=== PATIENT | male | born 1995 | race Caucasian/White ===

== ENCOUNTER 2021-05-30 22:02 | Emergency (ER) | payer OTHER, BC, SELFPAY ==
[2021-05-30 22:04] VITALS: BP 173/103; PULSE 82; RESP 18; TEMP 36.3; O2SAT 96; BMI 34.4
[2021-05-31 00:03] VITALS: RESP 16
--- NOTE | 2021-05-31 00:07 | EX.ED.UPPERE ---
HPI History of Present Illness Chief Complaint: Laceration Informant: patient Narrative Narrative: Patient received a laceration across the dorsal distal surface of his left nondominant hand and thumb. He does not know if it opens up. No other injury. 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 No active bleeding. Nothing makes his symptoms better or worse. PFSH PFSH Allergy/AdvReac Type Severity Reaction Status Date / Time No Known Allergies Allergy Verified 05/30/21 22:05 Social History Smoking Status: Former smoker ROS ROS ED Gastrointestinal Gastrointestinal: Denies nausea or vomiting Musculoskeletal Musculoskeletal: Reports other Details: Thumb injury as in history of present illness. Integumentary Reports other Details: Laceration to left distal dorsal thumb. Endocrine Endocrinology: Denies polydipsia or polyuria Hematologic/Lymphatic Hematologic/Lymphatic: Denies easy bleeding or easy bruising EXAM Physical Exam Const Vital Signs: 05/30/21 22:04 05/31/21 00:03 Temperature 97.4 F L Temperature Source Temporal Pulse Rate 82 Respiratory Rate 18 16 Blood Pressure 173/103 H Blood Pressure Mean 126 Pulse Ox 96 Oxygen Delivery Method Room Air Positive well nourished and well developed General Appearance ED: well developed and NAD HEENT normocephalic and atraumatic Neck full ROM Chest Wall inspection of chest normal Resp normal respiratory effort Extremity full ROM Extremity Narrative: There is a laceration across the dorsal distal surface of the patient's left thumb. This does cut into the nail. It cuts about 2 mm into the skin just under the nail. I cannot get this to open up or widened. I am soaking and scrubbing it. It is still not open. We are going to soak it some more. His range of motion is intact. Distal sensation capillary refill is normal. There is no bleeding at the area. General Extremety ED: Negative for edema General Extremity: Negative for edema Neuro oriented x3 and no sensory deficits noted Sensorium / Orientation: alert Sensory Exam: No sensory level loss detected Skin Trauma: other See above under extremity. MDM MDM MDM Narrative Medical decision making narrative: Patient was soaked for an extensive period of time. I cannot get this laceration to open. I think it cut into the nail but not into the tissue below it. There is really no benefit to suturing as it does not open up. I explained this to patient. He can have light duty for several days to allow this to heal. He should keep it clean. Return with redness swelling odor drainage pain or swelling. Discharge Plan Triage Chief Complaint: Laceration ED Provider: Max Gonzáles Dx/Rx/DC Orders Clinical Impression: Laceration of left thumb with damage to nail Instructions: ED Wound Check (No Infection) Stand Alone Forms: Work Status Form Primary Care Provider: NOT,DEFINED Referrals: Spencer Morales MD [STAFF PHYSICIAN] - 1 Week if not improving NOT,DEFINED [Primary Care Provider] - Disposition Disposition: Home, Self Care
[2021-05-31 02:04] VITALS: RESP 16
== END 2021-05-31 02:09 | disposition home or self-care (01) ==
LOC: ED 05-31 01:29
PROVIDERS: Emergency Provider Emergency Medicine
DX: S61.112A Laceration without foreign body of left thumb with damage to nail, initial encounter (principal); X58.XXXA Exposure to other specified factors, initial encounter; Z87.891 Personal history of nicotine dependence
CPT/HCPCS: 99282

== ENCOUNTER 2021-08-18 05:19 | Emergency (ER) | payer BC, SELFPAY ==
[2021-08-18 05:19] VITALS: BP 167/90; PULSE 85; RESP 16; TEMP 37.1; O2SAT 97; BMI 34.9
--- NOTE | 2021-08-18 05:40 | RAD_ITS ---
STUDY: X-RAY CHEST REASON FOR EXAM: Male, 25 years old. cough TECHNIQUE: Frontal and lateral views of the chest. COMPARISON: None. FINDINGS: The lungs are clear and expanded. There is no demonstrated pleural abnormality. Normal size heart. Normal mediastinum and torey. Normal visualized pulmonary arteries. Normal visualized aortic arch and descending thoracic aorta. Normal visualized thoracic spine. Normal visualized ribs, clavicles, and shoulders. There is no demonstrated abnormality of the visualized soft tissue structures of the upper abdomen. RAD/Chest PA and Lateral IMPRESSION: Normal x-ray examination of the chest. Electronically Signed: Page Tejeda MD at 6:17 EST Tel , Service support ,
--- NOTE | 2021-08-18 05:41 | ED.VIS.DYS ---
HPI History of Present Illness Chief Complaint: Cough Informant: patient Narrative Narrative: Patient presents with about 2 weeks of cough. He mostly brings up a bit of phlegm but no thick sputum. No blood. Some days his nose is congested and some days is running. He came in today because he heard sounds in his lungs when he woke up. He is not sure how to explain these and he has not heard them before. He is a non-smoker. Evidently his daughter has had similar symptoms. No known exposure to Covid. He is not having myalgias nausea or vomiting. He does not feel systemically ill. PFSH PFSH Home Medications NK 08/18/21 [History Last Taken Unknown] albuterol sulfate [Ventolin HFA] 2 puff INHALATION Q4H PRN PRN #1 inhaler 08/18/21 [Rx Last Taken Unknown] Allergy/AdvReac Type Severity Reaction Status Date / Time No Known Allergies Allergy Verified 08/18/21 05:22 Social History Smoking Status: Former smoker ROS ROS ED Constitutional Constitutional ED: Denies chills or fever(s) Eyes Eyes: Denies blurry vision or change in vision ENT ENT ED: Reports rhinorrhea; Denies ear pain or sore throat Cardiovascular Cardiovascular: Denies chest pain Respiratory/Chest Respiratory/Chest: Reports cough; Denies dyspnea Gastrointestinal Gastrointestinal: Denies diarrhea, nausea or vomiting Genitourinary Genitourinary ED: Denies dysuria Musculoskeletal Musculoskeletal: Denies myalgias Integumentary Denies rash Neurologic Neurologic: Denies headache(s) or weakness Endocrine Endocrinology: Denies polyuria Hematologic/Lymphatic Hematologic/Lymphatic: Denies easy bleeding or easy bruising Allergic/Immunologic Allergic/Immunologic ED: Denies urticaria EXAM Physical Exam Const Vital Signs: 08/18/21 05:19 08/18/21 05:23 08/18/21 06:05 Temperature 98.7 F Temperature Source Temporal Pulse Rate 85 88 Respiratory Rate 16 18 Respiratory Effort Normal Non-Labored Respiratory Depth Normal Respiratory Pattern Normal Normal Blood Pressure 167/90 H Blood Pressure Mean 115 Pulse Ox 97 Oxygen Delivery Method Room Air Positive well nourished and well developed General Appearance ED: well developed and NAD HEENT Reports moist mucous membranes atraumatic Eyes PERRL General Eye ED: Negative for pale conjunctiva or scleral icterus Neck no JVD Neck Narrative: No stridor Resp normal respiratory effort and No clear to auscultation bilaterally Auscultation: wheezes; Negative for rales or rhonchi Cardio regular rate and regular rhythm GI non-tender and non-distended Palpation: soft Back/Spine normal to inspection Extremity normal to inspection General Extremety ED: Negative for edema or tenderness General Extremity: Negative for edema Neuro oriented x3 Sensorium / Orientation: alert Psych mental status grossly normal Skin Lesions: no lesions Rashes: no rashes MDM MDM MDM Narrative Medical decision making narrative: Chest x-ray shows no acute process. Patient's lungs sound clear now. He is having more coughing in the morning and at night. I will write for albuterol. He is a non-smoker. I am not seeing indication for antibiotics or steroids at this time. Radiography Diagnostic Testing: Clinical Impression(s) from Imaging Studies Chest X-Ray 08/18/21 05:40 IMPRESSION: Normal x-ray examination of the chest. Electronically Signed: Page Tejeda MD at 6:17 EST Tel , Service support , Discharge Plan Triage Chief Complaint: Cough ED Provider: Max Gonzáles Dx/Rx/DC Orders Clinical Impression: Acute bronchitis Instructions: ED Bronchitis with Wheezing (Adult) Prescriptions: New albuterol sulfate [Ventolin HFA] 1 INHALER inhaler 2 puff inhalation Q4H PRN PRN (Reason: Wheezing) Qty: 1 RF: 0 No Action NK RF: 0 Primary Care Provider: Care Physician,No Primary Referrals: Laurel Sebastian MD [STAFF PHYSICIAN] - 1 Week if not improving Care Physician,No Primary [Primary Care Provider] - Disposition Disposition: Home, Self Care Discharge Date/Time: 08/18/21 06:58
[2021-08-18 06:05] VITALS: PULSE 88; RESP 18
[2021-08-18] MEDS: Ipratropium/Albuterol Sulfate 3 ML AMPUL.NEB INHALATION (06:05)
== END 2021-08-18 06:58 | disposition home or self-care (01) ==
PROVIDERS: Emergency Provider Emergency Medicine
DX: J20.9 Acute bronchitis, unspecified (principal); Z87.891 Personal history of nicotine dependence
CPT/HCPCS: 71046; 94640; 99282